=== PATIENT | male | born 1965 | race African-American/Black ===

== ENCOUNTER 2023-01-25 16:41 | Emergency (ER) | payer MEDICAID, OTHER ==
[~2023-01-25] VITALS: Ht 182.9 cm; Wt 65.9 kg
[~2023-01-25 16:41] MED LIST: NO MEDS
[2023-01-25 16:46] VITALS: BP 143/68; PULSE 83; RESP 16; TEMP 99.1
[2023-01-25] MEDS ORDERED: PERTUSS(ACELL),DIPH,TET VAC/PF 0.5 ML SYRINGE IM. ONE (18:00)
[2023-01-25] MEDS ORDERED: DiphenhydrAMINE HCL 50 MG CAPSULE PO ONE (18:00)
[2023-01-25] MEDS ORDERED: ACETAMINOPHEN 500 MG TABLET PO ONE (18:00)
== END 2023-01-25 18:33 | disposition home or self-care (01) ==
LOC: EMS 16:42
DX: S61.452A Open bite of left hand, initial encounter (principal); R51.9 Headache, unspecified; F17.210 Nicotine dependence, cigarettes, uncomplicated; F12.90 Cannabis use, unspecified, uncomplicated; W53.11XA Bitten by rat, initial encounter; Y93.89 Activity, other specified; Y92.89 Other specified places as the place of occurrence of the external cause; Y99.8 Other external cause status
CPT/HCPCS: 90471; 90715; 99283